=== PATIENT | female | born 1940 ===

== ENCOUNTER 2021-12-29 09:09 | Day surgery (SDC) | payer OTHER ==
[~2021-12-29] VITALS: Ht 152.4 cm; Wt 65.8 kg
[~2021-12-29 09:09] MED LIST: AMLODIPINE BESYL5 MG PO; ANAPROX; GABAPENTIN100 M2 PO; IBU800 MG PO; PRILOSEC OTC20 MG PO; ZESTRIL20 MG PO
== END 2021-12-29 13:45 | disposition home or self-care (01) ==
LOC: CIR.AMB 09:09
PROVIDERS: ATTEND Surgery Surgery of the Hand
DX: M65.842 Other synovitis and tenosynovitis, left hand (principal); Z88.8 Allergy status to other drugs, medicaments and biological substances; I10 Essential (primary) hypertension; J45.909 Unspecified asthma, uncomplicated